=== PATIENT | female | born 1995 | race Caucasian/White ===

== ENCOUNTER → 2018-10-25 | Outpatient (REF) ==
[2018-10-25 12:09] LABS: HEPATITIS B SURFACE ANTIBODY POSITIVE (POSITIVE); RUBELLA IgG QUALITATIVE IMMUNE (IMMUNE)
== END ==
LOC: M LAB 10:38
PROVIDERS: ATTEND Nurse Practitioner Adult Health
DX: Z00.00 Encounter for general adult medical examination without abnormal findings (principal)

== ENCOUNTER 2019-02-23 11:04 | Inpatient (IN) | payer OTHER, SELFPAY ==
[~2019-02-23] VITALS: Ht 162.6 cm; Wt 88.4 kg
[2019-02-23] MEDS ORDERED: traZODone 50 MG TAB PO PRN (13:45)
[2019-02-23] MEDS ORDERED: MOM 30ML SUSPENSION UDC PO PRN (13:45)
[2019-02-23] MEDS ORDERED: ACETAMINOPHEN TAB 650MG DOSE (2X325MG) PO PRN (13:45)
[2019-02-23] MEDS ORDERED: MAALOX 30 ML SUSP *UDC PO PRN (13:45)
[2019-02-23 16:18] VITALS: BP 105/64
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
[2019-02-23] MEDS: NITROFURANTOIN (MACROBID) 100 MG CAP PO SCH (21:00)
[2019-02-24 06:56] VITALS: BP 116/65
[2019-02-24 06:58] LABS: HEMATOCRIT 38.2 % (36.0-47.0); HEMOGLOBIN 12.4 g/dl (12.0-15.5); MEAN CORPUSCULAR HEMOGLOBIN 28.1 pg (27.0-33.0); MEAN CORPUSCULAR HGB CONC 32.5 g/dl (32.0-36.5); MEAN CORPUSCULAR VOLUME 86.4 fl (80.0-96.0); PLATELET COUNT, AUTOMATED 275 10^3/uL (150-450); RED BLOOD COUNT 4.42 10^6/uL (4.00-5.40); WHITE BLOOD COUNT 4.8 10^3/uL (4.0-10.0)
[2019-02-24 07:28] LABS: BLOOD UREA NITROGEN 6 MG/DL (7-18); CALCIUM LEVEL 8.3 MG/DL (8.5-10.1); CARBON DIOXIDE LEVEL 28 MEQ/L (21-32); CHLORIDE LEVEL 111 MEQ/L (98-107); FREE T4 1.08 NG/DL (0.76-1.46); GLOMERULAR FILTRATION RATE > 60.0 (>60); GLUCOSE, FASTING 93 MG/DL (70-100); POTASSIUM SERUM 3.8 MEQ/L (3.5-5.1); SODIUM LEVEL 144 MEQ/L (136-145)
[2019-02-24] MEDS: NITROFURANTOIN (MACROBID) 100 MG CAP PO SCH ×2 (08:58→20:47)
[2019-02-24 16:08] VITALS: BP 113/60
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
--- NOTE | 2019-02-24 19:19 | IPNPDOC ---
Text Note Date of Service The patient was seen on 02/24/19. NOTE Subjective: - -ROS is negative for fever, dysuria, riky hematuria, back or flank pain. All other elements of the 12 point ROS were reviewed and were negative. Objective: Vitals: see below Physical Examination General Exam: Alert, No Acute Distress Eye Exam: PERRLA, Conjunctiva & lids normal, EOMI, anicteric ENT Exam: MMM Neck Exam: supple with no JVD or thyromegaly Chest Exam:CTAB, no wheezing, rales or rhonchi Heart Exam: RRR, no mrg Abdomen Exam: Normal bowel sounds, obese, soft, nontender Extremity Exam: WWP, no edema, 2+ DP pulses Skin Exam: Nl turgor and temperature, no breakdown or rashes Neuro Exam: Normal Gait, Normal Speech, Cranial Nerves 3-12 NL Psych Exam: Mental status NL, Mood NL, Memory Intact, Oriented x 3 Labs - CBC, BMP and TSH wnl - +UA with pending culture Assessment/Plan 23 yo woman with a history of bipolar, depression, anxiety, obesity and PSUD wi th meth admitted to the [facility] for intentional overdose with flexeril and meth and found to have a UTI on empiric macrobid. Plan UTI: - continue macrobid -will follow up [facility] microbiology results for speciation and sensitivity as out inhouse sample was contaminated. (will sign off today, with the intention to follow up on the lab and will make the necessary changes if warranted to the antibiotic per cultures). For now plan will be for 3d of macrobid. Flexeril and meth overdose: -s/p fluids with supportive care -Labs remained wnl this morning, can discontinue monitoring at this time -Low TSH, free T4 is normal Will sign off. Thank you. VS,Fishbone, I+O VS, Fishbone, I+O Laboratory Tests 02/24/19 06:35 Vital Signs Date Time Temp Pulse Resp B/P (MAP) Pulse Ox O2 Delivery O2 Flow Rate FiO2 02/24/19 06:56 98.0 62 14 116/65 (82) 02/23/19 16:18 98 Room Air FELISHA SANDERSON MD Feb 24, 2019 08:00
[2019-02-25 06:37] VITALS: BP 119/74
[2019-02-25] MEDS: NITROFURANTOIN (MACROBID) 100 MG CAP PO SCH ×2 (09:20→21:07)
[2019-02-25 16:23] VITALS: BP 104/59
--- NOTE | 2019-02-25 16:32 | MHIPNPDOC ---
[facility] Progress Note Progress Note DATE OF SERVICE: 02/25/19 HISTORY OF THE PRESENT ILLNESS: Patient is a 23 -year-old , female, who as per ED report: "Pt was transferred from [facility] after an attempted SI by overdose. Pt stated, [place], took pills and then posted it on FB. According to Pt, depressed "my entire life", has SI thoughts most of the time. Pt has hx of substance abuse, when asked drug of choice responded with, "Doesn't matter". Pt remains on bed, eyes closed, coverded up with blanket, minimal responses". INTERVAL HISTORY: Patient was sleeping in her room, she was awakened, she said she felt very tired because she was coming off from drugs and she knows it takes about 7 days for her to recover from that. She said that is a waste of time to be here, she says she could have gone to Outpatient and talk to a Psychiatrist out of the Hospital. VITAL SIGNS: See below. NEW TEST RESULTS: See below CURRENT MEDICATIONS: See below. General Appearance: well groomed, appears stated age, hospital scrubs/clothing Build: average Demeanor: resistant, withdrawn, guarded Eye Contact: avoidant, poor Activity: slowed, sleepy Behavior: minimally cooperative, resistant, anhedonia, withdrawn Speech: clear, slow, normal volume, impoverished ( she only speaks if she is prompted) Mood: depressed, irritable Affect: constricted, congruent Thought Process: logical/linear Thought Content (Delusions): none reported Thought Content (Other): preoccupied, guarded, ideas of reference, appears paranoid, denies SI, denies [place]. Thought Content (Aggressive): none reported Perception (Hallucinations): none reported Perception (Other): none reported Cognition (Impairment of): memory Cognition(Intelligence Est.): average Oriented: Awake, Alert Insight: poor Judgment: Poor Psychosis: Denies Diagnoses 1. bipolar disorder, depressed 2. r/o substance induced mood disorder 3. r/o personality disorder (borderline) . ASSESSMENT: The patient is not happy about her hospitalization, she still tries to minimize her OD and says she could have gone to an Outpatient Psychiatrist to take care of this crisis. She says she knows she feels tired because she's coming off from drugs and it has taken a week to recover, when she has come off from drugs previously. She is not engaged in her treatment, she continues to be resistant. I have not ordered any medications because she just overdosed and to me, it looks as if this is a result of substance abuse. Once she clears up from the drugs in her system, including the medications she OD'd, it will be easier to decide if she neds antidepressants or not. MANAGEMENT PLAN: As above TIME SPENT: 15 minutes. Vital Signs Vital Signs Date Time Temp Pulse Resp B/P (MAP) Pulse Ox O2 Delivery O2 Flow Rate FiO2 02/25/19 06:37 97.7 80 12 119/74 (89) Room Air 02/23/19 16:18 98 Current Medications Current Medications Medications (Trade) Dose Ordered Sig/Luc Route PRN Reason Start Time Stop Time Status Last Admin Dose Admin Acetaminophen (Tylenol Tab) 650 mg Q6HP PRN PO HEADACHE or DISCOMFORT 02/23/19 13:45 Al Hydrox/Mg Hydrox/Simethicone (Mylanta) 30 ml Q4HP PRN PO HEARTBURN/INDIGESTION 02/23/19 13:45 Home Med (Med Rec Complete!) ASDIRECTED XX 02/23/19 13:00 02/23/19 12:57 DC Magnesium Hydroxide (Milk Of Magnesia) 30 ml DAILYPRN PRN PO CONSTIPATION 02/23/19 13:45 Nitrofurantoin Monoh/Nitrofur Macro (Macrobid) 100 mg BID PO 02/23/19 21:00 02/26/19 22:00 02/25/19 09:20 Trazodone HCl (Desyrel) 50 mg QHSP PRN PO INSOMNIA 02/23/19 13:45 Allergies Coded Allergies: No Known Allergies (Unverified , 02/23/19) BRENT VALERO MD Feb 25, 2019 16:16
[2019-02-25] MEDS ORDERED: hydrOXYzine 50 MG TAB PO ONE (20:00)
[2019-02-26 06:27] VITALS: BP 141/64
[2019-02-26] MEDS: NITROFURANTOIN (MACROBID) 100 MG CAP PO SCH ×2 (10:00→20:52)
--- NOTE | 2019-02-26 10:20 | MHIPNPDOC ---
[facility] Progress Note Progress Note DATE OF SERVICE: 02/26/19 HISTORY: Patient is a 23 -year-old , female, who as per ED report: "Pt was transferred from [facility] after an attempted SI by overdose. Pt stated, [place], took pills and then posted it on FB. According to Pt, depressed "my entire life", has SI thoughts most of the time. Pt has hx of substance abuse, when asked drug of choice responded with, "Doesn't matter". Pt remains on bed, eyes closed, coverded up with blanket, minimal responses". INTERVAL HISTORY: Patient was sleeping in her room, she was awakened, she said she felt very tired because she was coming off from drugs and she knows it takes about 7 days for her to recover from that. She said that is a waste of time to be here, she says she could have gone to Outpatient and talk to a Psychiatrist out of the Hospital. VITAL SIGNS: See below. NEW TEST RESULTS: See below CURRENT MEDICATIONS: See below. General Appearance: well groomed, appears stated age, hospital scrubs/clothing Build: average Demeanor: cooperative Eye Contact: good Activity: average Behavior: cooperative Speech: clear, normal volume and rate Mood: "fine" Affect: euthymic, congruent Thought Process: logical/linear Thought Content (Delusions): none reported Thought Content (Other): denies SI/HI, AVH, paranoia Thought Content (Aggressive): none reported Perception (Hallucinations): none reported Perception (Other): none reported Cognition (Impairment of): memory Cognition(Intelligence Est.): average Oriented: Awake, Alert Insight: fair Judgment: fair Psychosis: Denies 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 States she regrets her overdose, "it was a stupid thing to do" and states she plans to never do that again. Denies any drug withdrawal symptoms for amphetamines as daytime fatigue is greatly improved. She is not engaged in her treatment, but is agreeable to creto outpatient for follow-up regarding substance use. Denies need for an antidepressant as denies depression and would prefer outpatient therapy rather than meds. She denies SI/HI, hallucinations, delusions. Pt feels safe here. MANAGEMENT PLAN: d/c planning for tomorrow TIME SPENT: 15 minutes. Vital Signs Vital Signs Date Time Temp Pulse Resp B/P (MAP) Pulse Ox O2 Delivery O2 Flow Rate FiO2 02/26/19 06:27 99.1 71 18 141/64 (89) 02/25/19 06:37 Room Air 02/23/19 16:18 98 Current Medications Current Medications Medications (Trade) Dose Ordered Sig/Luc Route PRN Reason Start Time Stop Time Status Last Admin Dose Admin Acetaminophen (Tylenol Tab) 650 mg Q6HP PRN PO HEADACHE or DISCOMFORT 02/23/19 13:45 Al Hydrox/Mg Hydrox/Simethicone (Mylanta) 30 ml Q4HP PRN PO HEARTBURN/INDIGESTION 02/23/19 13:45 Home Med (Med Rec Complete!) ASDIRECTED XX 02/23/19 13:00 02/23/19 12:57 DC Magnesium Hydroxide (Milk Of Magnesia) 30 ml DAILYPRN PRN PO CONSTIPATION 02/23/19 13:45 Nitrofurantoin Monoh/Nitrofur Macro (Macrobid) 100 mg BID PO 02/23/19 21:00 02/26/19 22:00 02/25/19 21:07 Trazodone HCl (Desyrel) 50 mg QHSP PRN PO INSOMNIA 02/23/19 13:45 Allergies Coded Allergies: No Known Allergies (Unverified , 02/23/19) NELSON COFFEY DO Feb 26, 2019 10:19 am
[2019-02-26 16:24] VITALS: BP 117/83
[2019-02-27 06:18] VITALS: BP 108/59
--- NOTE | 2019-02-27 09:04 | MHDSPDOC ---
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 Pt stated, [place] and then posted it on FB. According to Pt, depressed "my entire life", has SI thoughts most of the time. Pt has hx of substance abuse, when asked drug of choice responded with, "Doesn't matter". Pt remains on bed, eyes closed, coverded up with blanket, minimal responses". INTERVAL HISTORY: Patient was sleeping in her room, she was awakened, she said she felt very tired because she was coming off from drugs and she knows it takes about 7 days for her to recover from that. She said that is a waste of time to be here, she says she could have gone to Outpatient and talk to a Psychiatrist out of the Hospital. CONSULTANTS INVOLVED: none TREATMENT AND PROGRESS ON THE UNIT : Pt was admitted to [facility], seen for psychiatric assessment and not started on any antidepressant medication as she preferred to work in outpatient therapy as treatment. She was provided trazodone 50mg qhs prn insomnia. She attended groups daily during her stay. Her symptoms improved with treatment. On day of discharge she denied depression, anxiety, insomnia, SI/HI, hallucinations, delusions. She was discharged home with follow-up at [facility]. She felt safe for discharge. DISCHARGE ASSESSMENT: The patient seen and states she feels "good" today. States she regrets her overdose, "it was a stupid thing to do" and states she plans to never do that again. Denies any drug withdrawal symptoms from amphetamines as daytime fatigue is greatly improved. She is not engaged in her treatment, but is agreeable to [facility] outpatient for follow-up regarding substance use. Denies need for an antidepressant as denies depression and would prefer outpatient therapy rather than meds. She has been attending groups and finding them beneficial for her. She denies depression, anxiety, isnomnia, SI/HI, hallucinations, delusions. Pt feels safe to be discharged home. MENTAL STATUS EXAMINATION ON DISCHARGE: well groomed, appears stated age, hospital scrubs/clothing Build: average Demeanor: cooperative Eye Contact: good Activity: average Behavior: cooperative Speech: clear, normal volume and rate Mood: "good" Affect: euthymic, congruent Thought Process: logical/linear Thought Content (Delusions): none reported Thought Content (Other): denies SI/HI, AVH, paranoia Thought Content (Aggressive): none reported Perception (Hallucinations): none reported Perception (Other): none reported Cognition (Impairment of): memory Cognition(Intelligence Est.): average Oriented: Awake, Alert, oriented x3 Insight: good Judgment: good Psychosis: Denies MEDICATIONS ON DISCHARGE: none PLAN/FOLLOWUP ARRANGEMENTS: D/c home with follow-up at [facility] and [facility]. The amount of time spent in the coordination of care for this patient was approximately 30 minutes. Vital Signs/I&Os Vital Signs Date Time Temp Pulse Resp B/P (MAP) Pulse Ox O2 Delivery O2 Flow Rate FiO2 02/27/19 06:18 99.8 87 16 108/59 (75) Room Air 02/26/19 16:24 100 Laboratory Data Microbiology Microbiology 02/23/19 Urine Culture - Final, Complete Medications No Active Prescriptions or Reported Meds Allergies Coded Allergies: No Known Allergies (Unverified , 02/23/19) NELSON COFFEY DO Feb 27, 2019 9:04 am
== END 2019-02-27 13:00 | disposition home or self-care (01) | DRG 776 ==
LOC: M ED 11:04 → M ED INP 13:42 → M PSY 15:16
PROVIDERS: ADMIT Psychiatry & Neurology Psychiatry; ATTEND Psychiatry & Neurology Psychiatry
DX: F15.94 Other stimulant use, unspecified with stimulant-induced mood disorder (principal); E66.01 Morbid (severe) obesity due to excess calories; N39.0 Urinary tract infection, site not specified; F31.9 Bipolar disorder, unspecified; F41.9 Anxiety disorder, unspecified; F43.10 Post-traumatic stress disorder, unspecified; F60.3 Borderline personality disorder; T48.1X2A Poisoning by skeletal muscle relaxants [neuromuscular blocking agents], intentional self-harm, initial encounter; T43.622A Poisoning by amphetamines, intentional self-harm, initial encounter; Z68.33 Body mass index [BMI] 33.0-33.9, adult; Z91.5 Personal history of self-harm; Z90.49 Acquired absence of other specified parts of digestive tract; Z62.810 Personal history of physical and sexual abuse in childhood; Z62.811 Personal history of psychological abuse in childhood; Z91.410 Personal history of adult physical and sexual abuse; Z56.0 Unemployment, unspecified; Z81.8 Family history of other mental and behavioral disorders

== ENCOUNTER 2020-11-25 08:50 | Emergency (ER) | payer MEDICAID, OTHER ==
[~2020-11-25] VITALS: Ht 162.6 cm; Wt 90.9 kg
[2020-11-25 09:03] VITALS: BP 127/73
== END 2020-11-25 10:02 | disposition left against medical advice (07) ==
LOC: M ED 08:50
DX: Z53.21 Procedure and treatment not carried out due to patient leaving prior to being seen by health care provider (principal)

== ENCOUNTER → 2022-10-20 | Outpatient (CLI) | payer OTHER ==
[2022-10-20 13:41] LABS: HEMATOCRIT 37.6 % (36.0-47.0); HEMOGLOBIN 12.2 g/dl (12.0-15.5); MEAN CORPUSCULAR HEMOGLOBIN 28.5 pg (27.0-33.0); MEAN CORPUSCULAR HGB CONC 32.4 g/dl (32.0-36.5); MEAN CORPUSCULAR VOLUME 87.9 fl (80.0-96.0); PLATELET COUNT, AUTOMATED 273 10^3/uL (150-450); RED BLOOD COUNT 4.28 10^6/uL (4.00-5.40); WHITE BLOOD COUNT 8.2 10^3/uL (4.0-10.0)
[2022-10-20 14:13] LABS: HIV 1&2 SCREEN NEGATIVE (NEGATIVE)
[2022-10-20 14:21] LABS: HEPATITIS C VIRUS ABY INDEX 0.08 INDEX (<0.8)
[2022-10-20 16:07] LABS: GC DNA AMPLIFICATION NEGATIVE (NEGATIVE)
== END ==
LOC: M WUC 10:42
PROVIDERS: ATTEND Specialist
DX: Z34.81 Encounter for supervision of other normal pregnancy, first trimester (principal)

== ENCOUNTER → 2022-11-26 | Outpatient (CLI) | payer OTHER ==
[2022-11-26 15:57] LABS: HEMATOCRIT 35.6 % (36.0-47.0); HEMOGLOBIN 11.7 g/dl (12.0-15.5); MEAN CORPUSCULAR HEMOGLOBIN 29.3 pg (27.0-33.0); MEAN CORPUSCULAR HGB CONC 32.9 g/dl (32.0-36.5); MEAN CORPUSCULAR VOLUME 89.2 fl (80.0-96.0); PLATELET COUNT, AUTOMATED 242 10^3/uL (150-450); RED BLOOD COUNT 3.99 10^6/uL (4.00-5.40); WHITE BLOOD COUNT 8.4 10^3/uL (4.0-10.0)
[2022-11-26 16:44] LABS: HIV 1&2 SCREEN NEGATIVE (NEGATIVE)
[2022-11-26 16:51] LABS: HEPATITIS C VIRUS ABY INDEX 0.17 INDEX (<0.8)
[2022-11-26 16:54] LABS: GC DNA AMPLIFICATION NEGATIVE (NEGATIVE)
== END ==
LOC: M PLALAB 13:42
PROVIDERS: ATTEND Specialist
DX: Z34.81 Encounter for supervision of other normal pregnancy, first trimester (principal)

== ENCOUNTER → 2023-01-14 | Outpatient (CLI) | payer OTHER, SELFPAY | LOC: M WHC 12:42 | PROVIDERS: ATTEND Obstetrics & Gynecology | DX: O32.1XX0 Maternal care for breech presentation, not applicable or unspecified (principal); Z3A.20 20 weeks gestation of pregnancy ==

== ENCOUNTER → 2023-02-17 | Outpatient (CLI) | payer MEDICAID ==
[2023-02-17 15:33] LABS: HEMATOCRIT 33.2 % (36.0-47.0); HEMOGLOBIN 10.8 g/dl (12.0-15.5); MEAN CORPUSCULAR HEMOGLOBIN 29.9 pg (27.0-33.0); MEAN CORPUSCULAR HGB CONC 32.5 g/dl (32.0-36.5); PLATELET COUNT, AUTOMATED 316 10^3/uL (150-450); RED BLOOD COUNT 3.61 10^6/uL (4.00-5.40); WHITE BLOOD COUNT 10.1 10^3/uL (4.0-10.0)
[2023-02-17 16:59] LABS: GC DNA AMPLIFICATION NEGATIVE (NEGATIVE)
== END ==
LOC: M PLALAB 08:38
PROVIDERS: ATTEND Obstetrics & Gynecology
DX: Z34.82 Encounter for supervision of other normal pregnancy, second trimester (principal)

== ENCOUNTER → 2023-02-17 | Outpatient (CLI) | payer MEDICAID, SELFPAY | LOC: M WHC 07:36 | PROVIDERS: ATTEND Obstetrics & Gynecology | DX: O26.872 Cervical shortening, second trimester (principal); Z3A.25 25 weeks gestation of pregnancy ==

== ENCOUNTER → 2023-03-01 | Outpatient (CLI) | payer MEDICAID | LOC: M PLALAB 11:58 | PROVIDERS: ATTEND Advanced Practice Midwife | DX: Z34.82 Encounter for supervision of other normal pregnancy, second trimester (principal) ==

== ENCOUNTER → 2023-03-04 | Outpatient (CLI) | payer MEDICAID | LOC: M WHC 11:31 | PROVIDERS: ATTEND Advanced Practice Midwife | DX: Z34.82 Encounter for supervision of other normal pregnancy, second trimester (principal); Z3A.28 28 weeks gestation of pregnancy; Z36.2 Encounter for other antenatal screening follow-up ==

== ENCOUNTER → 2023-05-05 | Outpatient (REF) | payer MEDICAID, OTHER | LOC: M SFHCWAGY 15:24 | PROVIDERS: ATTEND Advanced Practice Midwife | DX: Z34.83 Encounter for supervision of other normal pregnancy, third trimester (principal) ==

== ENCOUNTER 2023-09-29 07:07 | Day surgery (SDC) | payer OTHER ==
[~2023-09-29] VITALS: Ht 162.6 cm; Wt 108.9 kg
[~2023-09-29 07:07] MED LIST: ACET1TAB55 PO; CITA10TA7 PO; IBUP-1022 PO; LAMO100T3 PO; PRENTAB9 PO; TUMS750C5 PO
[2023-09-29 07:42] LABS: HEMATOCRIT 38.7 % (36.0-47.0); HEMOGLOBIN 12.2 g/dl (12.0-15.5); MEAN CORPUSCULAR HEMOGLOBIN 25.1 pg (27.0-33.0); MEAN CORPUSCULAR HGB CONC 31.5 g/dl (32.0-36.5); MEAN CORPUSCULAR VOLUME 79.6 fl (80.0-96.0); PLATELET COUNT, AUTOMATED 342 10^3/uL (150-450); RED BLOOD COUNT 4.86 10^6/uL (4.00-5.40)
[2023-09-29] MEDS ORDERED: LR 1,000 ML IV SCH ×2 (07:45→10:10)
[2023-09-29] MEDS ORDERED: ROCURONIUM BROMIDE 50MG/5ML VIAL As Ordered ONE (08:53)
[2023-09-29] MEDS ORDERED: fentaNYL 100 MCG/2 ML INJECTION As Ordered ONE (08:54)
[2023-09-29] MEDS ORDERED: propofoL 200 MG/20 ML VIAL As Ordered ONE (08:54)
[2023-09-29] MEDS ORDERED: KETOROLAC 60MG 2ML VIAL As Ordered ONE (08:54)
[2023-09-29] MEDS ORDERED: LIDOCAINE 2% 100MG/5ML SDV (FOR ANES.) As Ordered ONE (08:54)
[2023-09-29] MEDS ORDERED: ONDANSETRON 4MG 2ML VIAL As Ordered ONE (08:54)
[2023-09-29] MEDS ORDERED: SUGAMMADEX SODIUM 500 MG/5 ML VIAL (BRIDION) As Ordered ONE (08:54)
[2023-09-29] MEDS ORDERED: MIDAZOLAM INJ 2MG/2ML VIAL As Ordered ONE (08:54)
[2023-09-29] MEDS ORDERED: dexmedeTOMIDine (4MCG/ML)200MCG/50ML BTL (PRECEDEX) As Ordered ONE (08:58)
[2023-09-29] MEDS ORDERED: ACETAMINOPHEN 1000MG 100ML IV BAG As Ordered ONE (09:28)
[2023-09-29] MEDS ORDERED: fentaNYL 100 MCG/2 ML INJECTION IV PRN (10:10)
[2023-09-29] MEDS ORDERED: HYDROMORPHONE HCL 0.5 MG/ 0.5 ML SYRINGE IV PRN (10:10)
[2023-09-29] MEDS: oxyCODONE 5MG TAB PO PRN (10:40)
[2023-09-29] MEDS: ONDANSETRON 4MG 2ML VIAL IV PRN (10:41)
[2023-09-29 11:00] VITALS: BP 126/72; TEMP 97.5; O2SAT 95
== END 2023-09-29 11:25 | disposition home or self-care (01) ==
LOC: M SDC 07:07
PROVIDERS: ATTEND Obstetrics & Gynecology
DX: Z30.2 Encounter for sterilization (principal); J45.909 Unspecified asthma, uncomplicated; K21.9 Gastro-esophageal reflux disease without esophagitis; Z79.899 Other long term (current) drug therapy; F32.A Depression, unspecified
CPT/HCPCS: 36415; 58661; 81025; 85027; 86850; 86900; 86901; 88302; J0131; J0665; J1100; J1885; J2250; J2405; J3010

== ENCOUNTER → 2023-11-30 | Outpatient (REF) | payer MEDICAID ==
[2023-11-30 17:56] LABS: AMORPHOUS SEDIMENT SMALL (NEGATIVE); APPEARANCE, URINE TURBID (CLEAR); BACTERIA, URINE AUTO NEGATIVE (NEGATIVE); BILIRUBIN, URINE AUTO NEGATIVE (NEGATIVE); BLOOD, URINE BLOOD 2+ (NEGATIVE); COLOR, URINE YELLOW (YELLOW); GLUCOSE, URINE (UA) AUTO NEGATIVE (NEGATIVE); KETONE, URINE AUTO NEGATIVE (NEGATIVE); LEUKOCYTE ESTERASE, URINE AUTO NEGATIVE (NEGATIVE); MUCUS, URINE LARGE (NEGATIVE); NITRITE, URINE AUTO NEGATIVE (NEGATIVE); PROTEIN, URINE AUTO NEGATIVE (NEGATIVE); RBC, URINE AUTO 0 /HPF (0-3); SPECIFIC GRAVITY URINE AUTO 1.026 (1.002-1.035); SQUAMOUS EPITHELIAL CELL UR AU 3 /HPF (0-6); WBC, URINE AUTO 0 /HPF (0-3)
[2023-12-02 12:00] LABS: HPV APTIMA Not Detected (Not Detected)
== END ==
LOC: M PLALAB 15:01
PROVIDERS: ATTEND Advanced Practice Midwife
DX: Z12.4 Encounter for screening for malignant neoplasm of cervix (principal); R30.0 Dysuria